=== PATIENT | female | born 1950 | race Caucasian/White ===

== ENCOUNTER 2019-01-24 10:24 | Emergency (ER) | payer OTHER, MEDICAID ==
[~2019-01-24] VITALS: Ht 157.5 cm; Wt 62.5 kg
[2019-01-24 10:34] VITALS: Ht 157.5 cm; Wt 62.5 kg
[2019-01-24] MEDS ORDERED: ASPIRIN 81 MG TAB PO STA (12:50)
[2019-01-24] MEDS ORDERED: MECLIZINE 12.5 MG TAB PO ONE (13:00)
--- NOTE | 2019-01-24 13:10 | ERD ---
ER Documentation Chief Complaint Chief Complaint Pt with generalized weakness and facial numbness X 3 days. Nuero intact HPI This is a very pleasant 68-year-old female, [place]-speaking, with a past medical history of [id number] diabetes mellitus and hypertension high cholesterol hypertension. The patient takes aspirin on a daily basis. Roughly 3 years ago the patient underwent a craniotomy for removal meningioma performed by the neurosurgeon Dr. Spivey. The patient indicates that roughly 3 days prior to arrival she started to notice numbness and tingling on both the left and right side of her face. It progressed to numbness of her mouth. She stated the numbness has been intermittent. It will last for several hours and then dissipate. However she noticed yesterday that she began to notice numbness of her bilateral toes. She had an episode where she felt very weak and developed dizziness where she felt as though the room was spinning around her. This lasted for several hours. Her symptoms improved when she would lay down but she felt as though she was going to pass out. When she woke this morning she still felt as though she was weak and going to pass out but did not have a complete transient loss of consciousness. Therefore her daughter brought her to the emergency department to be further evaluated. She said no fevers or shaking or chills. She denies any weakness of her upper or lower extremities. She had no changes in her speech. She never had any similar symptoms in the past. She has no chest pain. She has no shortness of breath. She denies any recent hospitalizations or sick contacts. ROS All systems reviewed and are negative except as per history of present illness. Medications Home Meds Reported Medications Aspirin* (Aspirin* Chew) 81 Mg Tab.chew, 81 MG PO DAILY, TAB.CHEW 01/24/19 Alendronate Sodium* (Alendronate Sodium*) 35 Mg Tablet, 1 TAB ORAL WEEKLY ON Monday01/24/19 Atorvastatin* (Atorvastatin*) 40 Mg Tablet, 1 TAB ORAL QHS 01/24/19 Metformin* (Glucophage*) 500 Mg Tab, 1 TAB ORAL QHS 01/24/19 Gabapentin* (Gabapentin*) 300 Mg Capsule, 1 CAP ORAL BID 01/24/19 Naproxen* (Naproxen*) 500 Mg Tablet, 1 TAB ORAL TID PRN for PAIN LEVEL 4-6 01/24/19 Lisinopril* (Lisinopril*) 5 Mg Tablet, 1 TAB ORAL DAILY 01/24/19 Allergies Allergies: Coded Allergies: No Known Allergy (Unverified , 01/24/19) PMhx/Soc Hx Alcohol Use: No Hx Substance Use: No Hx Tobacco Use: No Smoking Status: Never smoker Physical Exam Vitals Vital Signs Date Temp Pulse Resp B/P (MAP) Pulse Ox O2 O2 Flow FiO2 Time Delivery Rate 01/24/19 98.6 79 18 153/72 98 10:34 (99) Physical Exam Constitutional:Well-developed. Well-nourished. HEENT:Normocephalic. Atraumatic.Pupils were equal round reactive to light. Moist mucous membranes.No tonsillar exudates. Previous surgical scar on the frontal region. Neck: No nuchal rigidity. No lymphadenopathy. No posterior cervical spine tenderness or step-offs. Respiratory: Not using accessory muscles of respiration.Lungs were clear to auscultation bilaterally. No rhonchi. No rales. No wheezing. Cardiovascular: Regular rate regular rhythm.No murmurs. No rubs were appreciat ed.S1, S2 normal. Distal pulses are palpable 2+ bilaterally. GI: Abdomen was soft. Nontender. Non Distended. No pulsatile abdominal masses or bruits. No rebound. No guarding. Bowel sounds were present and normal. Muscle skeletal: Full range of motion of both the upper and lower extremities bilaterally.Normal muscle tone.No assymetrical calf tenderness or swelling. Skin: No petechia, no purpura. No lesions on the palms or the soles of the feet. No maculopapular rash. NEURO: Patient was alert, awake, orientated x3.No facial droop. Gait observed and normal with no ataxia.Speech had regular rate and rhythm. Sensation decreased to sharp and dull in the bilateral facial region. Decreased sensation to sharp and dull on the dorsal aspects of all toes. This did not include the dorsal aspect of the bilateral feet. Result Diagram: 01/24/19 1356 01/24/19 1356 Results 24 hrs Laboratory Tests Test 01/24/19 13:51 01/24/19 13:56 Bedside Glucose 102 mg/dL White Blood Count 8.0 10^3/ul Red Blood Count 4.57 10^6/ul Hemoglobin 13.4 g/dl Hematocrit 40.8 % Mean Corpuscular Volume 89.3 fl Mean Corpuscular Hemoglobin 29.3 pg Mean Corpuscular Hemoglobin Concent 32.8 g/dl Red Cell Distribution Width 13.1 % Platelet Count 191 10^3/UL Mean Platelet Volume 11.6 fl Immature Granulocytes % 0.200 % Neutrophils % 56.2 % Lymphocytes % 35.3 % Monocytes % 6.9 % Eosinophils % 0.9 % Basophils % 0.5 % Nucleated Red Blood Cells % 0.0 /100WBC Immature Granulocytes # 0.020 10^3/ul Neutrophils # 4.5 10^3/ul Lymphocytes # 2.8 10^3/ul Monocytes # 0.6 10^3/ul Eosinophils # 0.1 10^3/ul Basophils # 0.0 10^3/ul Nucleated Red Blood Cells # 0.0 10^3/ul Prothrombin Time 16.1 Sec Prothrombin Time Ratio 1.3 INR International Normalized Ratio 1.28 Activated Partial Thromboplast Time 22.4 Sec Urine Color COLORLESS Urine Clarity CLEAR Urine pH 7.0 Urine Specific [place] 1.003 Urine Ketones NEGATIVE mg/dL Urine Nitrite NEGATIVE mg/dL Urine Bilirubin NEGATIVE mg/dL Urine Urobilinogen NEGATIVE mg/dL Urine Leukocyte Esterase NEGATIVE Delmy/ul Urine Microscopic RBC 0 /HPF Urine Microscopic WBC 0 /HPF Urine Hemoglobin 1+ mg/dL Urine Glucose NEGATIVE mg/dL Urine Total Protein NEGATIVE mg/dl Sodium Level 143 mmol/L Potassium Level 4.1 mmol/L Chloride Level 107 mmol/L Carbon Dioxide Level 27 mmol/L Anion Gap 9 Blood Urea Nitrogen 14 mg/dl Creatinine 0.54 mg/dl Est Glomerular Filtrat Rate mL/min > 60 mL/min Glucose Level 99 mg/dl Hemoglobin A1c 6.6 % Calcium Level 9.6 mg/dl Total Bilirubin 0.5 mg/dl Direct Bilirubin 0.00 mg/dl Indirect Bilirubin 0.5 mg/dl Aspartate Amino Transf (AST/SGOT) 19 IU/L Alanine Aminotransferase (ALT/SGPT) 24 IU/L Alkaline Phosphatase 88 IU/L Creatine Kinase 55 IU/L Creatine Kinase Index 1.5 Creatinine Kinase MB (Mass) 0.81 ng/ml Troponin I < 0.012 ng/ml Total Protein 7.0 g/dl Albumin 4.3 g/dl Globulin 2.70 g/dl Albumin/Globulin Ratio 1.59 Triglycerides Level 119 mg/dl Cholesterol Level 159 mg/dl LDL Cholesterol, Calculated 91 mg/dl HDL Cholesterol 44 mg/dl Cholesterol/HDL Ratio 3.6 RATIO Urine Opiates Screen Negative Urine Barbiturates Negative Urine Amphetamines Screen Negative Urine Benzodiazepines Screen Negative Urine Cocaine Screen Negative Urine Cannabinoids Negative Current Medications Medications Dose Sig/Augustus Start Time Status Last (Trade) Ordered Route PRN Stop Time Admin Dose Reason Admin Aspirin 162 mg ONCE STAT 01/24/19 DC 01/24/19 (Aspirin) PO 12:50 01/24/19 13:33 12:54 Meclizine 25 mg ONCE ONCE 01/24/19 DC 01/24/19 HCl PO 13:00 01/24/19 13:33 (Antivert) 13:01 Procedures/MDM The patient presented to the emergency department with near syncope episode and numbness. The differential diagnosis of syncope is vast but my workup considered common benign disorders to life-threatening processes. Therefore my differential diagnosis included but was not limited to reflex-mediated syncope such as vasovagal or carotid sinus syncope from coughing, sneezing, micturition, or GI stimulation (eg, defecation). Other etiologies in my workup included orthostatic hypotension which could cause syncope from an abrupt drop in venous return to heart from volume depletion. An EKG and cardiac enzymes were obtained to rule out cardiac arrhythmias or ischemia. Cardiopulmonary disease such as valvular disease, hypertrophic cardiomyopathy, pericardial tamponade, or pulmonary embolism were considered as a factor causing the patients syncope episode. The patient had no difference in blood pressure in both arms that could suggest aortic dissection or subclavian steal syndrome. Rectal exam was negative for fecal occult blood that could suggest GI bleeding. Ancillary laboratory work was obtained to evaluate for metabolic or electrolyte abnormalities. The patient had no witnessed brief tonic movements that could suggest postictal confusion. The patient was placed on a monitor worker, continuous pulse oximetry and IV ac cess established by nursing staff. The patient was given Antivert. She was also given aspirin. 12 Lead EKG tracing ordered and reviewed by myself showed: Normal sinus rhythm of 75 bpm and no arrhythmia. DC interval normal. QRS duration normal. No ST segment elevation No ST segment depression. No changes consistent with acute ischemia. Q waves present in the inferior lead III. Patient was not a TPA candidate as her symptoms started 72 hours prior to arrival. Her symptoms have also been intermittent. I did obtain a CT scan of the patient's head which was read by the radiologist and reviewed myself and indicate the following: No acute intracranial abnormalities. 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 Small masses along the interhemispheric fissure and within the left ventricle likely reflecting multiple small meningiomas. MRI of the brain recommended for further evaluation. The patient had no electrolyte abnormalities. The patient had no urinary tract infection. The patient had no elevation of her troponin. Observation Note: Time: 5 hours Family Hx: No Hypertension Evaluation: Multiple exams showed improving symptoms and no evidence of a strokelike symptom. I did feel that this could be result of paresthesias. I also spoke with the [place] physician Dr. Cornejo who indicated he will arrange for an outpatient MRI to be performed. I spoke with the patient's daughter in length and they felt comfortable with patient being discharged home they asked for medication refill patient's Ativan. This was provided to them. The patient was discharged home in fair condition. They were instructed to return to the emergency department at any time if there was any worsening of their condition. The patient stated they would follow up with their PCP in the next 24-48 hours to initiate a suitable medication regimen under the care of their PCP as well as to allow their PCP to monitor any drug reactions. The patient was discharged home with prescriptions after they gave informed consent to the new medication. They were also fully informed by myself on the adverse effects and adverse drug interactions in order to provide adequate safeguards to prevent possible adverse reactions to medications. Departure Diagnosis: Primary Impression: Near syncope Additional Impression: Paresthesias Condition: NHUNG Snyder MD January 24, 2019 13:10
[2019-01-24] MEDS ORDERED: GABA300C16 ORAL (14:22)
[2019-01-24] MEDS ORDERED: ALEN35TA12 ORAL (14:22)
[2019-01-24] MEDS ORDERED: NAPR-688 ORAL (14:22)
[2019-01-24] MEDS ORDERED: METF-849 ORAL (14:22)
[2019-01-24] MEDS ORDERED: ASPI-903 PO (14:22)
[2019-01-24] MEDS ORDERED: ATOR40TA68 ORAL (14:22)
[2019-01-24] MEDS ORDERED: LISI-313 ORAL (14:22)
[2019-01-24] MEDS ORDERED: LORA0.5T PO (15:53)
[2019-01-24 16:29] VITALS: BP 144/87; PULSE 86; RESP 18
== END 2019-01-24 16:30 | disposition home or self-care (01) ==
LOC: E/R 10:24
DX: R55 Syncope and collapse (principal); R20.2 Paresthesia of skin; E11.9 Type 2 diabetes mellitus without complications; I10 Essential (primary) hypertension; Z79.82 Long term (current) use of aspirin; Z79.84 Long term (current) use of oral hypoglycemic drugs
CPT/HCPCS: 70450; 71045; 80053; 80061; 80307; 81001; 82550; 82553; 82962; 83036; 84484; 85025; 85610; 85730; 93005